=== PATIENT | female | born 2000 | race African-American/Black ===

== ENCOUNTER 2023-04-01 12:12 | Emergency (ER) | payer OTHER, SELFPAY ==
[2023-04-01 12:45] VITALS: BP 137/83; PULSE 104; RESP 18; TEMP 36.6; O2SAT 99; BMI 33.0
[2023-04-01 13:30] LABS: Bacteria Urine Many (>30); Culture Indicated Urine Specimen Cultured; RBC Urine 30-100/HPF (0-5/HPF); Squamous Epithelial Cell Urine 10-30 /HPF (0-5/HPF); WBC Urine >100/HPF (0-5/HPF)
--- NOTE | 2023-04-01 13:35 | ED.FEMALEGU ---
HPI - Female Genitourinary <Kallie Yee PA-C - Last Filed: 04/01/23 19:49> General Chief complaint: Urogenital-Female Stated complaint: Rash, allergic reaction Time Seen by Provider: 04/01/23 13:01 Source: patient Mode of arrival: Ambulatory History of Present Illness HPI Narrative: 22-year-old female presents with concern for possible allergic reaction to Aquaphor on her vulva. Patient states that her long distance boyfriend is visiting and they have been sexually active yesterday and the day before. A day and a half ago she started noticing some itching and pain and irritation of the skin of her vaginal region. By yesterday morning she noticed she was peeing more often and this irritation had worsened. She states a sense of relief during and after urinating. She has chronic skin sensitivity and uses Aquaphor and hydrocortisone on her skin in general for this. Last night she tried using Aquaphor externally on her vulva and states that this morning the irritation and discomfort in the region or worse. She says she looked at the area today and it looked ?very swollen?. She admits that she thinks it is possible things could be swollen due to recent intercourse. She denies any blood in her urine, denies any concern for sexually transmitted infections or --she is on control, not having periods due to this. She is here today with her boyfriend/partner. She denies fevers, chills, nausea, vomiting, flank pain, abdominal pain, pelvic pain or any other symptoms. Related Data Previous Rx's Medication Instructions Recorded betamethasone dipropionate 0.05 % 1 applic topical BID PRN skin 04/01/23 lotion irritation 8 days #60 mL nitrofurantoin 100 mg PO BID UTI 5 days #10 caps 04/01/23 monohydrate/macrocrystals 100 mg capsule (Macrobid) Allergies Allergy/AdvReac Type Severity Reaction Status Date / Time No Known Drug Allergies Allergy Verified 04/01/23 12:45 Review of Systems <Kallie Yee PA-C - Last Filed: 04/01/23 19:49> Review of Systems Narrative: See HPI Patient History <Kallie Yee PA-C - Last Filed: 04/01/23 19:49> Last Alcoholic Drink: does not use Substance Use Type: does not use Exam <Kallie Yee PA-C - Last Filed: 04/01/23 19:49> Narrative Exam Narrative: RN María in room as vat packer for exam GENERAL: 22 year old patient appears stated age. Well-developed patient, in mild distress. Nontoxic, well-appearing HEAD: Atraumatic. Normocephalic. EYES: Pupils equal round and reactive. Extraocular motions intact. No scleral icterus. No injection or drainage. ENT: Nose without bleeding, purulent drainage. Airway patent. NECK: Trachea midline. Non tender CARDIOVASCULAR: Regular rate and rhythm without murmurs, gallops, or rubs. RESPIRATORY: No increased work of breathing or respiratory distress GASTROINTESTINAL: Abdomen soft, non-tender, nondistended, no CVA tenderness. : External exam only. No pelvic exam performed/not indicated. External exam shows very subtle erythema/skin irritation of the labia minora and majora. Bilateral labia minora and majora are inflamed and swollen. Labia majora and minora are tender to touch without fluctuance or masses. No discharge visible. No lesions or hives noted. EXTREMITIES: Moving all extremities, normal gait BACK: Nontender without deformity or crepitance. No flank tenderness. NEURO: AOx3. SKIN: No rash or erythema of visible areas Initial Vital Signs Initial Vital Signs: Vital Signs Temperature 97.8 F 04/01/23 12:45 Pulse Rate 104 H 04/01/23 12:45 Respiratory Rate 18 04/01/23 12:45 Blood Pressure 137/83 04/01/23 12:45 Pulse Oximetry 99 04/01/23 12:45 Oxygen Delivery Method Room Air 04/01/23 12:45 <Maria Elena Christy MD - Last Filed: 04/03/23 02:36> Initial Vital Signs Initial Vital Signs: Vital Signs Temperature 97.8 F 04/01/23 12:45 Pulse Rate 104 H 04/01/23 12:45 Respiratory Rate 18 04/01/23 12:45 Blood Pressure 137/83 04/01/23 12:45 Pulse Oximetry 99 04/01/23 12:45 Oxygen Delivery Method Room Air 04/01/23 12:45 Course <Kallie Yee PA-C - Last Filed: 04/01/23 19:49> Orders Ordered: ED Orders 12/29/23 13:05 Urine Culture Stat Urine Microscopic Stat 04/01/23 13:35 Wet Prep Tric BV Tati Stat Vital Signs Vital signs: Vital Signs - 8 hr 04/01/23 12:45 04/01/23 14:23 Temperature 97.8 F Pulse Rate 104 H 106 H Respiratory Rate 18 22 Blood Pressure 137/83 136/84 Pulse Oximetry 99 100 Oxygen Delivery Method Room Air Room Air <Maria Elena Christy MD - Last Filed: 04/03/23 02:36> Orders Ordered: ED Orders 04/01/23 13:05 Urine Culture Stat Urine Microscopic Stat 04/01/23 13:35 Wet Prep Tric BV Tati Stat Vital Signs Vital signs: Vital Signs - 8 hr 04/01/23 12:45 04/01/23 14:23 Temperature 97.8 F Pulse Rate 104 H 106 H Respiratory Rate 18 22 Blood Pressure 137/83 136/84 Pulse Oximetry 99 100 Oxygen Delivery Method Room Air Room Air MDM - Female Genitourinary <Kallie Yee PA-C - Last Filed: 04/01/23 19:49> Differential Diagnosis Differential diagnosis: Likely urinary tract infection, bacterial vaginosis and other (allergic reaction, soft tissue trauma, yeast infection) Medical Records Attestation: I reviewed the patient's medical records. Lab Data Attestation: I reviewed the patient's lab results. Labs: Lab Results 04/01/23 Range/Units 13:05 Urine RBC 30-100/hpf H (0-5/HPF) Urine WBC >100/hpf H (0-5/HPF) Ur Squamous Epith Cells 10-30 /hpf H (0-5/HPF) Urine Bacteria Many (>30) H (None) Ur Culture Indicated? Specimen cultured Point of Care Testing Test Results Negative Urine Dip Bedside Urine Glucose Negative Bedside Urine Bilirubin + 1 Bedside Urine Ketone +/- 5 Urine Specific [place] 1.030 Bedside Urine Occult Blood +++ Bedside Urine pH 6.0 Bedside Urine Protein +++ 300 Bedside Urine Urobilinogen - Negative Bedside Urine Nitrite - Negative Bedside Urine Leukocytes + 70 Esterase MDM Narrative Medical decision making narrative: This is a well-appearing 22-year-old woman who presents with concern for pain itching burning and swelling of the vulvar region. Patient endorses a history of recent increased sexual activity in the last 2 days with her symptoms beginning in the last 2 days also with urgency and frequency of urination. Her urine dip today is very suggestive of a UTI. External exam of the genitalia does also suggest possibly inflammation due to localized allergic reaction or soft tissue trauma from sexual activity. Possibly both. Patient denied concern for sexually transmitted infections and these are not tested for today. A complete pelvic exam was not performed as patient has not had abnormal vaginal discharge, she has no abdominal or pelvic tenderness or flank tenderness on exam, she does do a self-swab wet prep which returns negative for yeast trichomoniasis and bacterial vaginosis. I think it is possible that many of these patient's symptoms are associated with her UTI. And that while she may have had a reaction to the Aquaphor she used yesterday evening it is more likely that the source of her irritation is inflammation due to recent increased sexual activity. Discussed options with the patient and she is interested in a topical steroid cream to help reduce inflammation and discomfort in the region. Given her labial inflammation I think this is very reasonable. Based on exam and history I do not suspect a abscess or cellulitis of the area. She is advised to monitor carefully for persistent or worsening symptoms and seek re-evaluation if these develop. Prescription for Macrobid and betamethasone dipropionate lotion. Return precautions provided, follow-up plan discussed, all questions answered. <Maria Elena Christy MD - Last Filed: 04/03/23 02:36> Lab Data Labs: Lab Results 04/01/23 Range/Units 13:05 Urine RBC 30-100/hpf H (0-5/HPF) Urine WBC >100/hpf H (0-5/HPF) Ur Squamous Epith Cells 10-30 /hpf H (0-5/HPF) Urine Bacteria Many (>30) H (None) Ur Culture Indicated? Specimen cultured Point of Care Testing Test Results Negative Urine Dip Bedside Urine Glucose Negative Bedside Urine Bilirubin + 1 Bedside Urine Ketone +/- 5 Urine Specific [place] 1.030 Bedside Urine Occult Blood +++ Bedside Urine pH 6.0 Bedside Urine Protein +++ 300 Bedside Urine Urobilinogen - Negative Bedside Urine Nitrite - Negative Bedside Urine Leukocytes + 70 Esterase Discharge Plan Departure Patient Disposition: Home Clinical Impression: Acute vulvitis Urinary tract infection Qualifiers: Urinary tract infection type: acute cystitis Hematuria presence: with hematuria Qualified Code(s): N30.01 - Acute cystitis with hematuria Instructions: DI for Urinary Tract Infection (UTI) Activity Restrictions/Additional Instructions: *You have been diagnosed with urinary tract infection, vulvar edema/vulvitis *What to do: *Please continue to take your regular medications as directed. [2] New medication prescriptions sent to your pharmacy: [Macrobid, betamethasone dipropionate lotion] [ ] New medication written as a paper prescription [ ] No new medications given *Please follow up with your primary care provider in 2-3 days, call for an appointment. Let them know you were seen in the Emergency Department and that we ask that you be seen in follow up. We will electronically transmit a record of today's note if your PCP is in our system. You do have a urinary tract infection and we sent her urine for culture takes about 48 hours to result and confirm that you are on an appropriate antibiotic. Please start the Macrobid/nitrofurantoin that was prescribed today for your UTI. I did also prescribe a topical lotion that you can use in the vulvar region up to twice a day to see if this improves your symptoms. We did do a wet prep today to evaluate for yeast infection or bacterial vaginosis this came back negative. If you are not improving/develop new or concerning symptoms or are worsening please make sure you get re-evaluated. Otherwise follow up with your primary care provider or [facility] provider for a recheck. *If you do not have a primary care provider please contact [facility] Resource line at [phone]. They will ask some questions about your medical history and help get you set up with a doctor in the community. *Return to Emergency Department if you should have any new, worsening or concerning symptoms, such as [fever greater than 101 F, shaking chills, worsening pain, persistent vomiting or other bothersome symptoms] Prescriptions: New nitrofurantoin monohyd/m-cryst [Macrobid] 100 mg capsule 100 mg PO BID 5 Days Qty: 10 0RF Rx Instructions: must administer with a meal/food betamethasone dipropionate 0.05 % lotion 1 applic topical BID PRN (Reason: skin irritation) 8 Days Qty: 60 0RF Referrals: [facility] [Primary Care Provider] - Stand Alone Forms: Patient Portal/API ED Sign-out <Maria Elena Christy MD - Last Filed: 04/03/23 02:36> Cosign ED Attending Cosignature Attestation: I was immediately available in the department for consultation throughout this patient's visit. Maria Elena Christy MD
[2023-04-01 14:23] VITALS: BP 136/84; PULSE 106; RESP 22; O2SAT 100
== END 2023-04-01 15:12 | disposition home or self-care (01) ==
PROVIDERS: Emergency Provider Student in an Organized Health Care Education/Training Program
DX: N76.2 Acute vulvitis (principal); N30.01 Acute cystitis with hematuria
CPT/HCPCS: 81003; 81015; 81025; 87086; 87210; 99282